=== PATIENT | male | born 1995 | race Two or more races ===

== ENCOUNTER → 2024-10-16 | Outpatient (CLI) | payer OTHER, SELFPAY ==
--- NOTE | 2024-10-16 16:31 | XR_ITS ---
Examination: Lumbar spine, 5 views Technique: Lumbar spine AP, lateral, coned lateral lower lumbar spine, bilateral obliques 5 views Exam date and time: October 16, 2024, 1705 hours, comparison April 01, 2018 INDICATIONS: Low back pain 2 weeks. FINDINGS: Lumbar dextroscoliosis 10 degrees No lumbar fracture Mild disc narrowing at the lower 3 lumbar levels No spondylolisthesis IMPRESSION: Mild disc narrowing at the lower 3 lumbar levels
== END | disposition home or self-care (01) ==
PROVIDERS: PCP Family Medicine; Referring Provider Family Medicine; Visit Provider Family Medicine
DX: M48.061 Spinal stenosis, lumbar region without neurogenic claudication (principal)
CPT/HCPCS: 72110

== ENCOUNTER → 2025-01-25 | Outpatient (CLI) | payer OTHER, SELFPAY ==
--- NOTE | 2025-01-25 07:00 | XR_ITS ---
Examination: MRI lumbar spine without contrast Date and time of exam: January 25, 2025, 0656 hrs. Indications: Low back pain radiating to the right leg beginning one year ago Technique: Multiple MRI axial and sagittal sections lumbar spine. Sagittal T2-weighted images, TR 3500, TE 118 T1 weighted transverse sections, TR 688 T8.5, T2-weighted sagittal sections T1 weighted sagittal sections TR 621, TE 30 T2 axial sections, TR 4, 190, TE 84. Findings: Satisfactory alignment lumbar vertebral bodies No lumbar fracture. Disc desiccation L3-L4, L4-L5. No spondylolisthesis. L5-S1 no disc protrusion L4-L5 9 mm right paracentral disc bulge displacing the right L4 nerve root L3-L4 4 mm central lumbar disc bulge More cephalad levels unremarkable Impression: L4-L5 9 mm right paracentral disc bulge displacing the right L4 nerve root L3-L4 4 mm central lumbar disc bulge
== END | disposition home or self-care (01) ==
LOC: SMRI 06:32
PROVIDERS: PCP Family Medicine; Referring Provider Family Medicine; Visit Provider Family Medicine
DX: M51.360 Other intervertebral disc degeneration, lumbar region with discogenic back pain only (principal); M51.370 Other intervertebral disc degeneration, lumbosacral region with discogenic back pain only
CPT/HCPCS: 72148